=== PATIENT | male | born 1955 | race Caucasian/White ===

== ENCOUNTER → 2022-12-29 | Outpatient (CLI) | payer MEDICARE, OTHER ==
[2022-12-29 14:48] LABS: BASOPHILS ABSOLUTE AUTO 0.03 K/mm3 (0.00-0.23); BASOPHILS PERCENT AUTO 1 % (0-2); EOSINOPHILS ABSOLUTE AUTO 0.12 K/mm3 (0.00-0.68); EOSINOPHILS PERCENT AUTO 2 % (0-6); Hematocrit 46.4 % (37.0-53.0); Hemoglobin 14.6 g/dL (13.5-17.5); IMMATURE GRAN ABSOLUTE AUTO 0.01 K/mm3 (0.00-0.10); IMMATURE GRAN PERCENT AUTO 0 % (0-1); LYMPHOCYTES ABSOLUTE AUTO 1.23 K/mm3 (0.84-5.20); LYMPHOCYTES PERCENT AUTO 24 % (21-46); MONOCYTES ABSOLUTE AUTO 0.48 K/mm3 (0.16-1.47); MONOCYTES PERCENT AUTO 10 % (4-13); Mean Corpuscular HGB 27.7 pg (26.0-34.0); Mean Corpuscular HGB Conc 31.5 g/dL (31.5-36.5); Mean Corpuscular Volume 88 fL (80-100); Mean Platelet Volume 12.6 fL (9.1-12.4); NEUTROPHILS PERCENT AUTO 63 % (41-73); Platelet Count 159 K/mm3 (150-400); RDW Coefficient Variation 13.6 % (11.7-14.2); Red Blood Cell Count 5.28 M/mm3 (4.30-5.90); White Blood Cell Count 5.07 K/mm3 (4.00-11.30)
[2022-12-29 15:01] LABS: Alanine Aminotransfer (ALT/SGP 27 U/L (12-78); Albumin, Blood 3.3 g/dL (3.4-5.0); Albumin/Globulin Ratio 0.9 (0.8-1.8); Alk Phos 96 U/L (50-136); Anion Gap 2 mmol/L (6-16); Aspartate Aminotrans (AST/SGOT 19 U/L (12-37); Bilirubin, Total 0.7 mg/dL (0.1-1.0); Blood Urea Nitrogen 17 mg/dL (8-24); Bun/Creatinine Ratio 17.5 (12.0-20.0); CHOL/HDL RATIO 2.2; CO2, Blood 29 mmol/L (21-32); Calcium, Blood 8.9 mg/dL (8.5-10.1); Chloride, Blood 112 mmol/L (98-108); Cholesterol 167 mg/dL (50-200); Creatinine, Blood 0.97 mg/dL (0.60-1.20); Globulin, Blood 3.7 g/dL (2.2-4.0); Glomerular Filtration Rate 85 (60-); Glucose, Blood 123 mg/dL (70-99); HDL Cholesterol 76 mg/dL (>39); LDL/HDL RATIO 1.1; Low Density Lipoprotein Chol 82 mg/dL (0-110); Potassium, Blood 4.1 mmol/L (3.5-5.5); Sodium, Blood 143 mmol/L (136-145); Triglycerides 44 mg/dL (30-160); Very Low Density Lipoprot Chol 8 mg/dL (6-32)
== END | disposition home or self-care (01) ==
LOC: LAB SHORT 08:45 → LAB 08:45
PROVIDERS: Physician Assistant
DX: Z13.6 Encounter for screening for cardiovascular disorders (principal); I10 Essential (primary) hypertension
CPT/HCPCS: 80053; 80061; 83036; 85025

== ENCOUNTER 2023-05-04 04:59 | Observation (INO) | payer MEDICARE, OTHER ==
[~2023-05-04] VITALS: Ht 170.2 cm; Wt 79.0 kg
[2023-05-04] MEDS ORDERED: METO25ER PO (05:17)
[2023-05-04] MEDS ORDERED: Hytrin1 MG PO (05:17)
[2023-05-04] MEDS ORDERED: AMLO10 PO (05:18)
[2023-05-04] MEDS ORDERED: Crestor20 MG PO (05:18)
[2023-05-04] MEDS ORDERED: Lisinopril2.5 MG PO (05:19)
[2023-05-04] MEDS ORDERED: TAMS.4ER PO (05:21)
[2023-05-04 06:07] LABS: BASOPHILS ABSOLUTE AUTO 0.03 K/mm3 (0.00-0.23); BASOPHILS PERCENT AUTO 0 % (0-2); EOSINOPHILS ABSOLUTE AUTO 0.02 K/mm3 (0.00-0.68); EOSINOPHILS PERCENT AUTO 0 % (0-6); Hematocrit 48.8 % (37.0-53.0); Hemoglobin 16.3 g/dL (13.5-17.5); IMMATURE GRAN ABSOLUTE AUTO 0.04 K/mm3 (0.00-0.10); IMMATURE GRAN PERCENT AUTO 0 % (0-1); LYMPHOCYTES ABSOLUTE AUTO 1.04 K/mm3 (0.84-5.20); LYMPHOCYTES PERCENT AUTO 8 % (21-46); MONOCYTES PERCENT AUTO 4 % (4-13); Mean Corpuscular HGB 28.4 pg (26.0-34.0); Mean Corpuscular HGB Conc 33.4 g/dL (31.5-36.5); Mean Corpuscular Volume 85 fL (80-100); Mean Platelet Volume 12.1 fL (9.1-12.4); NEUTROPHILS ABSOLUTE AUTO 10.85 K/mm3 (1.96-9.15); NEUTROPHILS PERCENT AUTO 87 % (41-73); Platelet Count 158 K/mm3 (150-400); RDW Coefficient Variation 12.7 % (11.7-14.2); RDW Standard Deviation 39.4 fL (35.1-46.3); Red Blood Cell Count 5.73 M/mm3 (4.30-5.90); White Blood Cell Count 12.48 K/mm3 (4.00-11.30)
[2023-05-04 06:17] LABS: Albumin, Blood 3.8 g/dL (3.4-5.0); Albumin/Globulin Ratio 0.9 (0.8-1.8); Bilirubin, Total 0.8 mg/dL (0.1-1.0); Bun/Creatinine Ratio 25.3 (12.0-20.0); Calcium, Blood 9.1 mg/dL (8.5-10.1); Creatinine, Blood 0.91 mg/dL (0.60-1.20); Globulin, Blood 4.4 g/dL (2.2-4.0); Potassium, Blood 3.4 mmol/L (3.5-5.5); Total Protein, Blood 8.2 g/dL (6.4-8.2)
[2023-05-04 12:46] VITALS: BP 123/71
[2023-05-04 14:46] VITALS: BP 107/66
--- NOTE | 2023-05-04 17:23 | NUR ---
NEW ADMIT @1400, AOX4, NPO AT 0000 FOR SURGERY TOMORROW. IVF INFUSING, ABX ON PIGGYBACK. ORIENTED TO ROOM. VSS CALL LIGHT IN REACH.
[2023-05-04 20:05] VITALS: BP 116/71
[2023-05-05] VITALS (21 sets, daily range): BP systolic 112–141; BP diastolic 60–84
--- NOTE | 2023-05-05 04:23 | NUR ---
SHIFT SUMMARY PT HERE FOR ACUTE ALLEN. PT HAS BEEN SLEEPING ALL NIGHT. DENIES ANY PAIN. NPO SINCE MIDNIGHT. ABLE TO GO TO THE BATHROOM, VOIDING. PLAN FOR SURGERY TODAY. NO OTHER CONCERNS AT THIS TIME. CALL LIGHT WITHIN REACH.
[2023-05-05 04:47] LABS: BASOPHILS ABSOLUTE AUTO 0.02 K/mm3 (0.00-0.23); BASOPHILS PERCENT AUTO 0 % (0-2); EOSINOPHILS ABSOLUTE AUTO 0.15 K/mm3 (0.00-0.68); EOSINOPHILS PERCENT AUTO 2 % (0-6); Hemoglobin 13.2 g/dL (13.5-17.5); IMMATURE GRAN ABSOLUTE AUTO 0.02 K/mm3 (0.00-0.10); IMMATURE GRAN PERCENT AUTO 0 % (0-1); LYMPHOCYTES ABSOLUTE AUTO 1.35 K/mm3 (0.84-5.20); LYMPHOCYTES PERCENT AUTO 17 % (21-46); MONOCYTES ABSOLUTE AUTO 0.69 K/mm3 (0.16-1.47); MONOCYTES PERCENT AUTO 9 % (4-13); Mean Corpuscular HGB 28.6 pg (26.0-34.0); Mean Corpuscular Volume 87 fL (80-100); Mean Platelet Volume 11.2 fL (9.1-12.4); NEUTROPHILS ABSOLUTE AUTO 5.82 K/mm3 (1.96-9.15); NEUTROPHILS PERCENT AUTO 72 % (41-73); Platelet Count 126 K/mm3 (150-400); RDW Coefficient Variation 12.9 % (11.7-14.2); RDW Standard Deviation 40.5 fL (35.1-46.3); Red Blood Cell Count 4.62 M/mm3 (4.30-5.90); White Blood Cell Count 8.05 K/mm3 (4.00-11.30)
[2023-05-05 05:35] LABS: Albumin, Blood 2.6 g/dL (3.4-5.0); Albumin/Globulin Ratio 0.8 (0.8-1.8); Bilirubin, Total 1.6 mg/dL (0.1-1.0); Bun/Creatinine Ratio 14.1 (12.0-20.0); Creatinine, Blood 0.92 mg/dL (0.60-1.20); Globulin, Blood 3.3 g/dL (2.2-4.0); Potassium, Blood 3.8 mmol/L (3.5-5.5); Total Protein, Blood 5.9 g/dL (6.4-8.2)
--- NOTE | 2023-05-05 12:54 | NUR ---
PT HERE FROM SURGICAL FLOOR VIA [facility]. Pre-Op teaching done. Pt verbalizes understanding. History, Chart, Medications and Allergies reviewed before start of procedure.Patient confirms NPO status and agrees with scheduled surgery.
--- NOTE | 2023-05-05 13:31 | NUR ---
PT TO OR AT ABOUT 1150
--- NOTE | 2023-05-05 16:43 | NUR ---
POST OP: REPORT RECEIVED FROM [employer]. PT TO UNIT AT ABOUT 1600. PT IS A/O, VSS. SURGICAL SITES WNL. PT DENIES PAIN/NAUSEA AT THIS TIME. PT ABLE TO EAT JELLO WITHOUT DIFFICULTLY. CALL LIGHT IN REACH, PT TOLD TO CALL STAFF FOR THE 1ST TIME OOB. PT AT BEDSIDE
--- NOTE | 2023-05-05 18:17 | NUR ---
THIS NURSE IS ASSUMING CARE AFTER REPORT FROM KANDACE SOSA. PATIENT IS LAYING IN BED WITH CALL LIGHT IN REACH.
--- NOTE | 2023-05-05 18:22 | NUR ---
REPORT PASSED TO IAN WILKINSON
[2023-05-06 05:54] VITALS: BP 116/69
[2023-05-06 07:18] VITALS: BP 116/74
--- NOTE | 2023-05-06 08:55 | NUR ---
SUMMARY PT PAIN MED CHANGED PER HIS REQUEST FOR BETTER PAIN CONTROL.REPORTS PERCOCET EFFECTIVE FOR PAIN CONTROL.TOLERATNG PO.VOIDING.NO FLATUS YET.NO NAUSEA.HOPING FOR DISCHARGE TODAY.
[2023-05-06] MEDS ORDERED: ACET325 PO (10:13)
--- NOTE | 2023-05-06 11:47 | NUR ---
DC'D HOME, DC INSTRUCTIONS GIVEN, VERBALIZED UNDERSTANDING.
== END 2023-05-06 11:55 | disposition home or self-care (01) ==
LOC: ER 04:59 → SURS 05:00 → MEDS 05:00 → SURS 11:51
PROVIDERS: Emergency Medicine; Surgery; ADMIT Internal Medicine
PROC: 0FT44ZZ Resection of Gallbladder, Percutaneous Endoscopic Approach (ICD-10-PCS; principal; 2023-05-05 13:30)
DX: K80.12 Calculus of gallbladder with acute and chronic cholecystitis without obstruction (principal); I10 Essential (primary) hypertension; E78.5 Hyperlipidemia, unspecified; E11.9 Type 2 diabetes mellitus without complications; N40.0 Benign prostatic hyperplasia without lower urinary tract symptoms; Z79.899 Other long term (current) drug therapy
CPT/HCPCS: 36415; 74177; 80053; 82947; 83690; 84484; 85025; 88304; 93005; 93010; 94762; 96361; 96365; 96366; 96367; 96368; 96375; 99285-25; A9270; G0378; J0295; J1100; J1170; J2250; J2405; J2543; J2704; J3010; J3480; J7030; J7050; J7120; Q9967